=== PATIENT | female | born 1990 | race Caucasian/White ===

== ENCOUNTER 2025-07-13 12:49 | Emergency (ER) | payer SELFPAY ==
--- NOTE | ~2025-07-13 | XR_ITS ---
Examination: XR finger 5th RT min 2V Clinical History: post reduction x rays. Comparison: 30 minutes prior Technique: Portable AP Findings/impression: 1. Slight residual dislocation of fifth finger at PIP joint. 2. Fracture along proximal phalanx, distal portion, medial segment. Reviewed, dictated and finalized at location R. PARKER
--- NOTE | ~2025-07-13 | XR_ITS ---
Examination: XR finger 5th RT min 2V Clinical History: fall ice skating Comparison: None Technique: 4 views right fifth finger Findings/impression: 1. Lateral dislocation fifth finger PIP joint. 2. No definite associated fracture identified. Reviewed, dictated and finalized at location R. WOOD FINISHER
[2025-07-13 13:03] VITALS: BP 139/90; PULSE 90; RESP 16; TEMP 36.5; O2SAT 99
--- NOTE | 2025-07-13 13:22 | ED.UPPEXIN ---
HPI - Extremity Injury (Upper) General Chief Complaint: Extremity Injury, Upper Stated Complaint: injured dean r hand patient presents to the [facility] with complaints of falling while ice skating today. Noted pain and swelling to right little finger. No medication or remedies attempted for symptoms. Denies numbness or tingling in hands or fingers Related Data Allergies Allergy/AdvReac Type Severity Reaction Status Date / Time No Known Allergies Allergy Verified 07/13/25 13:07 Review of Systems Constitutional: Constitutional: Reports as per HPI, Denies chills, Denies fatigue, Denies fever(s) and Denies weakness Eyes: Eyes: Reports no additional eye complaints ENT: Reports system reviewed and no additional complaints, except as documented Cardiovascular: Cardiovascular: Reports no additional cardiovascular complaints Respiratory: Respiratory: Reports no additional respiratory complaints Gastrointestinal: Gastrointestinal: Reports no additional gastrointestinal complaints Genitourinary: Genitourinary: Reports no additional female genitourinary complaints Musculoskeletal: Musculoskeletal: Reports as per HPI, Reports arthralgias, Reports joint swelling and Denies muscle cramps Comments: right little finger Integumentary/Breasts: Skin/Breast: Reports as per HPI, Denies erythema, Denies rash and Denies skin ulcer Neurologic: Reports as per HPI, Denies numbness and Denies weakness Psychiatric: Psychiatric: Reports no additional psychiatric complaints Endocrine: Endocrine: Reports no additional endocrine complaints Hematologic/Lymphatic: Hematologic/Lymphatic: Reports no additional hematologic/lymphatic complaints Allergic/Immunologic: Allergic/Immunologic: Reports no additional allergic/immunologic complaints Exam Const: General: healthy appearing and no acute distress Nutritional Appearance: well nourished Orientation/consciousness: patient oriented x3 Limitations: no limitations Resp: Effort & Inspection: normal respiratory effort Auscultation: clear to auscultation bilaterally Cardio: Rate: regular rate Rhythm: regular rhythm Skin: General skin exam: normal color Rashes: no rashes Wounds: no wounds Neuro: General: patient oriented x3 and moves all extremities Speech: normal speech Gait exam (Neuro): Normal gait present Extrem: Right upper extremity: Extremity exam: right hand abnormal to inspection, normal capillary refill, tenderness, abnormal ROM of finger, swelling and other (deformity PIP joint. ) Psych: Mental Status: mental status grossly normal Affect: normal affect Attitude: cooperative Course Course Level of Care: Express Care Visit Vital Signs Vital signs: Vital Signs Temperature 97.7 F 07/13/25 13:03 Pulse Rate 90 07/13/25 13:03 Respiratory Rate 16 07/13/25 13:03 Blood Pressure 139/90 07/13/25 13:03 Pulse Oximetry 99 07/13/25 13:03 Temperature 97.7 F 07/13/25 13:03 Pulse Rate 90 07/13/25 13:03 Respiratory Rate 16 07/13/25 13:03 Blood Pressure 139/90 07/13/25 13:03 Pulse Oximetry 99 07/13/25 13:03 Procedures Orthopedic Joint Reduction Joint #1: Orthopedic Joint Reduction Date: 07/13/25 Orthopedic Joint Reduction Time: 13:40 Side: right Joint Reduction Location: finger Analgesia: nerve block Pre-Procedure Neuro Vascular Exam: normal Local Anesthesia: lidocaine 1% Amount of anesthesic used (mL): 2 Technique used: traction/counter-traction Post-reduction neuro exam: intact Post-reduction vascular: intact Post Reduction X-Ray Obtained: Yes Post Reduction X-Ray Results: other ( continued slight dislocation and fracture noted) Splint Applied: Yes Patient Tolerated Procedure: well MDM MDM Narrative Medical decision making narrative: X-ray shows dislocation The patient was evaluated by myself in the express care. History is obtained from patient who is an independent historian and physical exam was performed. Available medical records were reviewed at this time. Exam findings show no acute concerns or changes; patient is non-toxic appearing and is in no distress. Patient is appropriate for outpatient treatment and follow-up. I have evaluated and discussed social determinants of health with the patient that could potentially impact subsequent diagnosis and treatment plans. Differential diagnosis and treatment plan were discussed with the patient. Patient agrees with discussion and after shared medical decision making agrees with plan of care. All questions were answered to the patient's satisfaction. Differential Diagnosis Differential Diagnosis: Dislocation, finger fracture, contusion Medical Records I have reviewed the following patient records and this information was taken into consideration when formulating the assessment and plan.: previous labs, previous ER visits, previous hospitalizations and previous clinic visits Imaging Data My impression: initial:dislocation right PIP post reduction: continued minimal dislocation PIP. Radiologist's impression: Findings/impression: 1. Slight residual dislocation of fifth finger at PIP joint. 2. Fracture along proximal phalanx, distal portion, medial segment. Reviewed, dictated and finalized at location R. N BLENDER Discharge Plan Discharge Clinical Impression: Closed fracture of phalanx of right little finger, Dislocation of proximal interphalangeal joint of right little finger, initial encounter Patient Disposition: Home Condition: Stable Instructions: Antibiotic Form, Finger Fracture (ED), Closed Reduction (ED), Finger Dislocation (ED) Additional Instructions: There is a fracture shown your x-ray as well as the minimal dislocation. We have placed you in an immobilization keep this all times. May remove to shower. Call the orthopedic physician you have been given to schedule an appointment as soon as possible. Ensure to take a disc of your x-ray results with you. Ice to the area 15-20 minutes 4-6 times a day until follow up with orthopedics. Minimize activities and rest the affected area as much as possible. 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 You may take over the counter tylenol and ibuprofen as needed for pain. May use the tramadol as needed for severe pain. This medication can make you drowsy do not drive, drink alcohol or operate heavy machinery while taking this medication. If you notice significantly increased pain, redness, and numbness, or tingling does to the emergency room for further evaluation of symptoms. Patient Language: Lao Follow-up/Referrals: PHYSICIAN,COMMUNITY CULTURAL DEVELOPMENT OFFICER [Primary Care Provider, Internal Medicine] Time of Disposition: 13:50
== END 2025-07-13 13:59 | disposition home or self-care (01) ==
PROVIDERS: Emergency Provider Nurse Practitioner Family
DX: S62.616A Displaced fracture of proximal phalanx of right little finger, initial encounter for closed fracture (principal); S63.286A Dislocation of proximal interphalangeal joint of right little finger, initial encounter; W19.XXXA Unspecified fall, initial encounter; Y93.21 Activity, ice skating
CPT/HCPCS: 29130; 26770; 73140; 99215; G0463